=== PATIENT | male | born 1990 | race Caucasian/White ===

== ENCOUNTER 2023-02-22 08:42 | Emergency (ER) | payer SELFPAY ==
[2023-02-22 09:12] VITALS: BP 142/73; O2SAT 96
[2023-02-22] MEDS ORDERED: ALPRAZolam 0.25 MG TABLET PO STA (09:35)
--- NOTE | 2023-02-22 09:37 | ED Physician Documentation ---
PD HPI MHE - Stated complaint Stated Complaint: ANXIETY,NO SLEEP - Chief complaint Chief Complaint: MHE - History obtained from History obtained from: Patient - Additional information Additional information: The patient comes to the emergency department chief complaint of anxiety. He states he has not been able to sleep for the last 3 nights because of it except for one period of 3 hours of sleep a couple of nights ago. He states is just general life stuff that is bothering him and that he did not have a specific triggering event. The patient states he has a history of anxiety previously but it has not been this bad. The patient denies any suicidal or homicidal ideation currently. He states he felt briefly suicidal a couple of weeks ago but that this did not result in a plan or an attempt. He states he is not on any medicine for anxiety but he feels like he should be. He does not have a primary doctor. PD PAST MEDICAL HISTORY - Past Medical History Past Medical History: Yes Psych: Depression, Anxiety, ADD/ADHD - Past Surgical History Past Surgical History: No - Present Medications Home Medications: Ambulatory Orders Medication Instructions Recorded Confirmed Alprazolam [Xanax] 1 mg PO BID PRN #20 tablet 02/22/23 - Allergies Allergies/Adverse Reactions: Allergies Allergy/AdvReac Type Severity Reaction Status Date / Time No Known Drug Allergies Allergy Verified 02/22/23 08:55 - Social History Does the pt smoke?: No Smoking Status: Never smoker Does the pt drink ETOH?: No Does the pt have substance abuse?: No PD ED PE NORMAL - Vitals Vital signs reviewed: Yes - General General: Alert and oriented X 3, No acute distress, Well developed/nourished - HEENT HEENT: Atraumatic, PERRL, EOMI, Moist mucous membranes - Neck Neck: Supple, no meningeal sign - Cardiac Cardiac: RRR, No murmur - Respiratory Respiratory: No respiratory distress, Clear bilaterally - Abdomen Abdomen: Soft, Non tender, Non distended - Derm Derm: Normal color, Warm and dry, No rash - Extremities Extremities: No deformity, No edema - Neuro Neuro: Alert and oriented X 3, gas treater 2-12 intact, No motor deficit, No sensory deficit, Normal speech - Psych Psych: Normal mood, Normal affect Results - Vitals Vitals: Vital Signs - 24 hr 02/22/23 08:51 Temperature 37.2 C Heart Rate 71 Respiratory 16 Rate Blood Pressure 142/73 H O2 Saturation 96 Oxygen O2 Source Room air PD Medical Decision Making - ED course Complexity details: considered differential, d/w patient ED course: The patient was well-appearing in the emergency department and did not have any current suicidal ideation. I given a dose of Xanax here and sent a prescription to [facility] for the same for him. He was accompanied by a friend who could drive him to the pharmacy and then home. I have recommended a primary care provider for him based on our ED follow-up schedule. We have discussed the usual indications for return. Departure - Departure Disposition: Home, Self Care Clinical Impression: Anxiety Insomnia Qualifiers: Insomnia type: unspecified Qualified Code(s): G47.00 - Insomnia, unspecified Condition: Stable Instructions: ED Insomnia, Anxiety Disorder Follow-Up: Amelie Jiménez MD [Provider Admit Priv/Credential] - Prescriptions: Alprazolam [Xanax] 1 mg PO BID PRN #20 tablet PRN Reason: Anxiety Comments: You have been treated in the emergency department today with Xanax and a prescription for the same is been electronically transmitted to the [facility] pharmacy in [place]. You may pick this up later this morning. The doctor on duty for ER follow-up is Dr. Amelie Jiménez. Her contact information has been provided on your discharge papers and you should call to make an appointment for follow-up as soon as possible.
== END 2023-02-22 09:46 | disposition home or self-care (01) ==
LOC: ED 08:42
DX: F41.9 Anxiety disorder, unspecified (principal); G47.00 Insomnia, unspecified; F32.A Depression, unspecified
CPT/HCPCS: 99282; 99283; A9270

== ENCOUNTER 2023-03-21 20:01 | Emergency (ER) | payer SELFPAY ==
[2023-03-21 20:17] VITALS: BP 140/60; O2SAT 98
[2023-03-21] MEDS ORDERED: ALPRAZolam 0.25 MG TABLET PO STA (20:28)
--- NOTE | 2023-03-21 20:39 | ED Physician Documentation ---
History of Present Illness - Stated complaint Stated Complaint: FATIGUE,DIZZY,DRY MOUTH - Chief complaint Chief Complaint: General - History obtained from History obtained from: Patient - Additonal information Additional information: HPI from patient. Patient was evaluated in this emergency department last month for complaints of insomnia and anxiety. He was prescribed alprazolam which he says provided good symptomatic relief and that he limited its use to at bedtime (prescribed as BID). The patient did get seen in the outpatient setting and was prescribed trazodone several days ago. Unfortunately, the patient says that this is caused a number of side effects including dry mouth, worsening anxiety during the day, fatigue, dizziness. He also says it is not working for his insomnia. The pat danelle called the office of the prescribing physician but did not hear back from them and, after several days of these side affects and insomnia, he presents to ED. Review of Systems Constitutional: reports: Fatigue Cardiac: reports: Reviewed and negative Respiratory: reports: Reviewed and negative Psychiatric: reports: Anxiety, Insomnia PD PAST MEDICAL HISTORY - Past Medical History Past Medical History: Yes Cardiovascular: None Respiratory: None Neuro: None Endocrine/Autoimmune: None GI: None : None HEENT: None Psych: Depression, Anxiety, ADD/ADHD Musculoskeletal: None Derm: None - Past Surgical History Past Surgical History: No - Present Medications Home Medications: Ambulatory Orders Medication Instructions Recorded Confirmed Alprazolam [Xanax] 1 mg PO BID PRN #20 tablet 02/22/23 Alprazolam [Xanax] 1 mg PO BID PRN #20 tablet 03/21/23 - Allergies Allergies/Adverse Reactions: Allergies Allergy/AdvReac Type Severity Reaction Status Date / Time No Known Drug Allergies Allergy Verified 03/21/23 20:07 - Social History Does the pt smoke?: No Smoking Status: Never smoker Does the pt drink ETOH?: No Does the pt have substance abuse?: No - Immunizations Immunizations are current?: Yes PD ED PE NORMAL - Vitals Vital signs reviewed: Yes - General General: Alert and oriented X 3, No acute distress, Well developed/nourished - Cardiac Cardiac: RRR, No murmur - Respiratory Respiratory: No respiratory distress, Clear bilaterally - Neuro Neuro: Alert and oriented X 3 Eye Opening: Spontaneous Motor: Obeys Commands Verbal: Oriented GCS Score: 15 - Psych Psych: Normal mood, Normal affect Results - Vitals Vitals: Vital Signs - 24 hr 03/21/23 20:07 Temperature 36.5 C Heart Rate 73 Respiratory 16 Rate Blood Pressure 140/60 H O2 Saturation 98 Oxygen O2 Source Room air PD Medical Decision Making - ED course Complexity details: reviewed old records (I reviewed the ED MD note from his [facility] ED visit last month.), considered differential, d/w patient ED course: Patient presents due to recurrent insomnia, anxiety. He also is having what sound likely to be side effects of the recently scribed trazodone. He says that the alprazolam prescribed last month worked well. I am thus prescribing this medication again at the same dose and same dosing schedule. I instructed the patient to again seek follow-up in the outpatient setting; patient is indicating he did contact the prescribing physician's office but did not hear back from them regarding appointment availability. He also indicates to me that he intends to try again when the office is next open. Departure - Departure Disposition: 01 Home, Self Care Clinical Impression: Anxiety Insomnia Qualifiers: Insomnia type: unspecified Qualified Code(s): G47.00 - Insomnia, unspecified Condition: Good Instructions: ED Insomnia, ED Panic Attack Prescriptions: Alprazolam [Xanax] 1 mg PO BID PRN #20 tablet PRN Reason: Anxiety Comments: I have electronically submitted a prescription for alprazolam (Xanax) to the [facility] pharmacy in [place]. This is the same medication and dosing as was prescribed last month from this emergency department. As we discussed, you should arrange for a follow-up appointment so that another medication can be prescribed to help you with your sleep and anxiety. Alprazolam is not a good medication for long-term use, but since you had improvement with this medication when it was last prescribed, I am represcribing it to allow some time and symptom relief until you can arrange for a follow-up appointment. Forms: PCP List Discharge Date/Time: 03/21/23 20:44
== END 2023-03-21 20:44 | disposition home or self-care (01) ==
LOC: ED 20:01
DX: G47.00 Insomnia, unspecified (principal); F41.9 Anxiety disorder, unspecified
CPT/HCPCS: 99282; 99284; A9270

== ENCOUNTER 2024-01-02 17:07 | Emergency (ER) | payer SELFPAY ==
[2024-01-02 17:28] VITALS: O2SAT 99
--- NOTE | 2024-01-02 20:04 | ED Physician Documentation ---
History of Present Illness - Stated complaint Stated Complaint: NOT SLEEPING - Chief complaint Chief Complaint: General - Additonal information Additional information: Patient is a 33 yo M presenting to the ED with insomnia for the past few weeks, He notes he is only getting about 3 hours of sleep every night. He notes this will happen for him occasionally and he usually takes xanax for his symptoms. He notes no previous PMHx. He notes no anxiety or bipolar disease. He notes he has decreased drinking to avoid worsening insomnia. He denies any nausea or vomiting, fevers or chills. PD PAST MEDICAL HISTORY - Past Medical History Past Medical History: Yes Cardiovascular: None Respiratory: None Neuro: None Endocrine/Autoimmune: None GI: None : None HEENT: None Psych: Depression, Anxiety, ADD/ADHD Musculoskeletal: None Derm: None - Past Surgical History Past Surgical History: No - Present Medications Home Medications: Ambulatory Orders Medication Instructions Recorded Confirmed Alprazolam [Xanax] 1 mg PO BID PRN #20 tablet 02/22/23 Alprazolam [Xanax] 1 mg PO BID PRN #20 tablet 03/21/23 Gabapentin [Neurontin] 100 mg PO ONCE #10 cap 01/02/24 - Allergies Allergies/Adverse Reactions: Allergies Allergy/AdvReac Type Severity Reaction Status Date / Time No Known Drug Allergies Allergy Verified 01/02/24 17:16 - Social History Does the pt smoke?: No Smoking Status: Never smoker Does the pt drink ETOH?: No Does the pt have substance abuse?: No - Immunizations Immunizations are current?: Yes - POLST Patient has POLST: No PD ED PE NORMAL - Vitals Vital signs reviewed: Yes - General General: Alert and oriented X 3 - Cardiac Cardiac: RRR, No murmur - Respiratory Respiratory: No respiratory distress - Abdomen Abdomen: Normal bowel sounds, Soft, Non tender - Male Male : Deferred - Rectal Rectal: Deferred - Neuro Neuro: Alert and oriented X 3 Eye Opening: Spontaneous Motor: Obeys Commands Results - Vitals Vitals: Oxygen O2 Source Room air PD Medical Decision Making - ED course Complexity details: reviewed old records ED course: Patient is a 33 yo Male presenting to the ED with persistent insomnia. Patient denies any PMHx. He notes he feels anxious with how little sleep he is getting but no history of insomnia. Patient has been eating and drinking well. He has no new stressors. He has taken multiple medications in the past for his history of insomnia including trazadone, melatonin without relief. He notes his symptoms resolve with xanax at home. 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 Discussed with rosa will order gabapentin at a low dose for him to begin taking at night to see if this will help his symptoms. patient understands and is agreealb ewith this plan. Patient will return to the ED with any new or worsening symptoms. Departure - Departure Disposition: Home, Self Care Clinical Impression: Insomnia, Anxiety Condition: Good Instructions: ED Panic Attack Prescriptions: Gabapentin [Neurontin] 100 mg PO ONCE #10 cap Comments: You are seen here in the emergency department for difficulty following the seat. Your workup here in the emergency department showed no acute findings. Symptoms most likely secondary to anxiety of tried a new nonaddictive medication to see if this will help with your insomnia symptoms. You can also take at home hydroxyzine 25 mg as needed for persistent insomnia. Return with any persistent insomnia hallucinations fevers severe anxiety or any other new or worsening symptoms. Forms: PCP List Discharge Date/Time: 01/02/24 20:57
[2024-01-02 21:02] VITALS: BP 132/78
== END 2024-01-02 20:57 | disposition home or self-care (01) ==
LOC: ED 17:07
DX: G47.00 Insomnia, unspecified (principal); F41.9 Anxiety disorder, unspecified
CPT/HCPCS: 99282; 99283